=== PATIENT | male | born 1980 | race Caucasian/White ===

== ENCOUNTER → 2020-10-21 | Outpatient (CLI) | payer BC | LOC: KOH-I 15:36 | DX: R10.11 Right upper quadrant pain (principal) | CPT/HCPCS: 74018 ==

== ENCOUNTER → 2021-09-08 | Outpatient (CLI) | payer BC ==
[2021-09-08 17:42] LABS: BUN/CREATININE RATIO 14 (0-10)
[2021-09-08 17:47] LABS: HEMOGLOBIN 16.4 gm/dl (14.0-17.5); RED BLOOD COUNT 5.18 M/UL (4.20-5.50)
== END ==
LOC: LAB 16:50
PROVIDERS: Nurse Practitioner Family
DX: I10 Essential (primary) hypertension (principal); R06.83 Snoring
CPT/HCPCS: 80053; 80061; 84443; 85025

== ENCOUNTER → 2022-02-08 | Outpatient (CLI) | payer BC | LOC: SLEEP 13:53 | DX: G47.33 Obstructive sleep apnea (adult) (pediatric) (principal) | CPT/HCPCS: 95810 ==